=== PATIENT | female | born 1990 | race Caucasian/White ===

== ENCOUNTER → 2020-01-19 | Outpatient (CLI) | payer OTHER ==
--- NOTE | 2020-01-19 12:23 | MR ---
EXAMINATION TYPE: MR cervical spine wo con DATE OF EXAM: 01/19/2020 COMPARISON: HISTORY: M54.81 occipital neuralgia, Left sided. Throbbing May Pains TECHNIQUE: Multiplanar, multisequence images of the cervical spine were acquired. C2-C3: No evidence for degenerative disc disease. No disc bulge/herniation or protrusion. No Canal stenosis. [place] are patent bilaterally. C3-C4: No evidence for degenerative disc disease. No disc bulge/herniation or protrusion. No Canal stenosis. [place] are patent bilaterally. C4-C5: No evidence for degenerative disc disease. No disc bulge/herniation or protrusion. No Canal stenosis. [place] are patent bilaterally. C5-C6: No evidence for degenerative disc disease. No disc bulge/herniation or protrusion. No Canal stenosis. [place] are patent bilaterally. C6-C7: No evidence for degenerative disc disease. No disc bulge/herniation or protrusion. No Canal stenosis. [place] are patent bilaterally. C7-T1: No evidence for degenerative disc disease. No disc bulge/herniation or protrusion. No Canal stenosis. [place] are patent bilaterally. Cervical segments are intact. There is normal alignment. Cervical vertebral bodies show preserved he ight and bone marrow signal Cervical spinal cord is of normal signal. Craniovertebral junction relat ionships are within normal limits. Prominent fat signal noted posterior to the cervical spine at the dorsal cervical fat pad. IMPRESSION: Normal cervical MRI
== END | disposition home or self-care (01) ==
LOC: RADMRIMAIN 09:36
PROVIDERS: ATTEND Psychiatry & Neurology Neurology
DX: M54.81 Occipital neuralgia (principal)
CPT/HCPCS: 72141